=== PATIENT | female | born 1990 | race Caucasian/White ===

== ENCOUNTER → 2022-08-11 | Outpatient (CLI) | payer BC | LOC: COL.RAD 07:30 | DX: M54.50 Low back pain, unspecified (principal) ==

== ENCOUNTER → 2022-08-21 | Outpatient (CLI) | payer BC | LOC: MHCPAIN 10:47 | DX: M54.50 Low back pain, unspecified (principal); M54.31 Sciatica, right side; M25.561 Pain in right knee | CPT/HCPCS: G0463 ==

== ENCOUNTER → 2022-08-27 | Outpatient (CLI) | payer BC | LOC: MHCPAIN 12:00 | DX: M54.50 Low back pain, unspecified (principal); M53.3 Sacrococcygeal disorders, not elsewhere classified | CPT/HCPCS: J3301; Q9967 ==

== ENCOUNTER → 2022-09-01 | Outpatient (CLI) | payer BC | LOC: COL.RAD 06:45 | DX: M25.561 Pain in right knee (principal) ==

== ENCOUNTER → 2022-09-09 | Outpatient (CLI) | payer BC | LOC: MHCPAIN 15:34 | DX: M54.50 Low back pain, unspecified (principal); M53.3 Sacrococcygeal disorders, not elsewhere classified; M25.561 Pain in right knee; M54.31 Sciatica, right side; M79.18 Myalgia, other site | CPT/HCPCS: G0463 ==